=== PATIENT | male | born 1970 | race Caucasian/White ===

== ENCOUNTER → 2017-11-03 | Outpatient (CLI) | payer OTHER | LOC: LAB.O 10:50 | PROVIDERS: ATTEND Surgery | DX: E03.1 Congenital hypothyroidism without goiter (principal) ==

== ENCOUNTER → 2018-02-04 | Outpatient (CLI) | payer OTHER | LOC: LAB.O 11:04 | PROVIDERS: ATTEND Surgery | DX: E03.1 Congenital hypothyroidism without goiter (principal) ==

== ENCOUNTER → 2018-06-07 | Outpatient (CLI) | payer OTHER | LOC: LAB.O 09:07 | PROVIDERS: ATTEND Surgery | DX: E03.1 Congenital hypothyroidism without goiter (principal) ==

== ENCOUNTER → 2018-12-06 | Outpatient (CLI) | payer OTHER | LOC: LAB.O 11:02 | PROVIDERS: ATTEND Surgery | DX: E03.1 Congenital hypothyroidism without goiter (principal) ==

== ENCOUNTER → 2019-07-21 | Outpatient (CLI) | payer OTHER | LOC: LAB.O 07:31 | PROVIDERS: ATTEND Family Medicine | DX: Z00.00 Encounter for general adult medical examination without abnormal findings (principal); E03.9 Hypothyroidism, unspecified; Z13.220 Encounter for screening for lipoid disorders ==

== ENCOUNTER → 2019-09-07 | Outpatient (CLI) | payer OTHER | LOC: YCFC.O 10:31 | PROVIDERS: ATTEND Family Medicine | DX: E03.9 Hypothyroidism, unspecified (principal) ==

== ENCOUNTER → 2020-05-09 | Outpatient (CLI) | payer OTHER ==
--- NOTE | 2020-05-09 14:29 | RAD ---
EXAM DESCRIPTION: Knee,Left Complete CLINICAL HISTORY: 50 years, Male, PAIN IN LEFT KNEE COMPARISON: None TECHNIQUE: Four views of the left knee FINDINGS: Four views left knee demonstrate mild osteopenia. Surgical changes suggesting previous anterior cruciate reconstruction noted. Advanced bone on bone degenerative changes and marginal osteophyte formation and joint space narrowing medial joint compartment evident peripherally. Lateral joint compartment better preserved. Moderate patellofemoral degenerative arthropathy noted. IMPRESSION: 1. Advanced degenerative changes left knee with previous anterior cruciate reconstruction and [id number] appearance of the medial joint compartment. Electronically signed by: Anthony Armstrong MD 05/09/2020 2:27 PM [facility]
--- NOTE | 2020-05-09 14:30 | RAD ---
EXAM DESCRIPTION: Pelvis CLINICAL HISTORY: 50 years Male, PAIN IN RIGHT HIP COMPARISON: None. FINDINGS: Single view of the pelvis demonstrates modest degenerative changes both hips with more significant sclerosis involving the right hip. Mild narrowing of the joint space on the right and left is present with marginal osteophyte formation. No fracture or dislocation seen. The bony pelvic ring intact with normal-appearing superior and inferior pubic rami. IMPRESSION: Modest degenerative changes both hips with slightly greater sclerosis noted on the right. Electronically signed by: Anthony Armstrong MD 05/09/2020 2:29 PM [facility]
--- NOTE | 2020-05-09 14:40 | RAD ---
EXAM DESCRIPTION: Knee,Right Complete CLINICAL HISTORY: 50 years Male, KNEE PAIN COMPARISON: None. Findings: Four views/radiographs Location: Right knee No acute fracture or dislocation. Moderate right knee osteoarthritis. No significant joint effusion. IMPRESSION: No evidence of acute process in the right knee. Electronically signed by: Neel Vieyra MD 05/09/2020 2:39 PM [facility]
== END ==
LOC: RAD 08:07
PROVIDERS: ATTEND Orthopaedic Surgery
DX: M17.12 Unilateral primary osteoarthritis, left knee (principal); M16.0 Bilateral primary osteoarthritis of hip; M25.561 Pain in right knee; Z98.890 Other specified postprocedural states